=== PATIENT | female | born 1970 | race Caucasian/White ===

== ENCOUNTER 2017-11-01 09:19 | Emergency (ER) | payer MEDICAID ==
[~2017-11-01] VITALS: Ht 152.4 cm; Wt 45.4 kg
[2017-11-01 09:25] VITALS: BP 150/99
[2017-11-01] MEDS ORDERED: DEXAMETHASONE 4 MG TABLET PO ONE (10:30)
[2017-11-01] MEDS ORDERED: DEXAMETHASONE 4 MG TABLET ONE (10:54)
== END 2017-11-01 11:52 | disposition home or self-care (01) ==
LOC: ED 09:57
DX: H66.001 Acute suppurative otitis media without spontaneous rupture of ear drum, right ear (principal)
CPT/HCPCS: 71046; 99284

== ENCOUNTER 2018-04-28 11:45 | Emergency (ER) | payer MEDICAID ==
[~2018-04-28] VITALS: Ht 149.9 cm; Wt 48.7 kg
[2018-04-28 11:51] VITALS: BP 166/84
== END 2018-04-28 12:35 | disposition home or self-care (01) ==
LOC: ED 12:10
DX: S39.012A Strain of muscle, fascia and tendon of lower back, initial encounter (principal); X58.XXXA Exposure to other specified factors, initial encounter; Y93.89 Activity, other specified; Y99.8 Other external cause status; Y92.89 Other specified places as the place of occurrence of the external cause
CPT/HCPCS: 99283

== ENCOUNTER 2019-04-17 18:25 | Inpatient (IN) | payer MEDICAID ==
[~2019-04-17] VITALS: Ht 149.9 cm; Wt 48.3 kg
--- NOTE | 2019-04-17 19:20 | NUR ---
PT BROUGHT BACK TO ROOM 39 FROM THE LOBBY
--- NOTE | 2019-04-17 19:23 | NUR ---
PT WALKING AROUND ROOM ON ARRIVAL. A&OX4, STEADY GAIT.
[2019-04-17 19:45] LABS: MEAN CORPUSCULAR HEMOGLOBIN 29.5 pg (27.0-34.8); MEAN CORPUSCULAR HGB CONC 33.3 g/dL (32.4-35.8); MEAN CORPUSCULAR VOLUME 88.8 fL (80-100); MEAN PLATELET VOLUME 6.9 fL (7.4-10.4); PLATELET COUNT 350 x10^3/uL (130-400); RED BLOOD COUNT 4.59 x10^6/uL (3.82-5.3); RED CELL DISTRIBUTION WIDTH 12.9 % (9.6-15.2)
[2019-04-17 19:59] LABS: ALANINE AMINOTRANSFERASE 19 U/L (12-78); ALBUMIN 3.3 g/dL (3.4-5.0); ANION GAP 7 mmol/L (5-15); CALCIUM 8.8 mg/dL (8.5-10.1); CHLORIDE 101 mmol/L (98-107); CREATININE 0.78 mg/dL (0.55-1.02)
[2019-04-17 20:01] LABS: ALKALINE PHOSPHATASE 91 U/L (45-117); BILIRUBIN,TOTAL 0.3 mg/dL (0.2-1.0); TOTAL PROTEIN 7.6 g/dL (6.4-8.2)
[2019-04-17] MEDS ORDERED: FOSFOMYCIN 3 GM PACKET ONE (20:03)
--- NOTE | 2019-04-17 20:04 | NUR ---
PT TO CT SCAN
[2019-04-17 20:19] LABS: BASOPHILS # (AUTO) 0.01 x10^3/uL (0-0.1); BASOPHILS % (AUTO) 0 % (0-1); EOSINOPHILS # (AUTO) 0.47 x10^3/uL (0-0.4); EOSINOPHILS % (AUTO) 3 % (1-7); LYMPHOCYTES # (AUTO) 1.16 x10^3/uL (1-3.4); LYMPHOCYTES % (AUTO) 7 % (22-44); MD SCAN; MONOCYTES # (AUTO) 0.64 x10^3/uL (0.2-0.8); MONOCYTES % (AUTO) 4 % (2-9); NEUTROPHILS # (AUTO) 14.74 x10^3/uL (1.8-6.8); NEUTROPHILS % (AUTO) 87 % (42-75)
[2019-04-17] MEDS ORDERED: OMNIPAQUE 350 MG/ML, 100ML BOTTLE ONE (20:22)
[2019-04-17] MEDS ORDERED: SODIUM CHLORIDE FLUSH 10ML SYR IVF ONE (21:30)
[2019-04-17] MEDS ORDERED: PHARMACOKINETIC CONSULTATION MC ONE (22:00)
[2019-04-17] MEDS ORDERED: MORPHINE SULFATE 4 MG/ML, 1ML IVPush PRN (22:00)
[2019-04-17] MEDS ORDERED: AMPICILLIN/SULBACTAM 3 GM in SODIUM CHLORIDE 0.9% 100 ML IV ONE (22:00)
[2019-04-17] MEDS ORDERED: SODIUM CHLORIDE 0.9% 1,000ML IVBOLUS ONE (22:00)
[2019-04-17] MEDS ORDERED: VANCOMYCIN PER PHARMACY IV ONE (22:00)
[2019-04-17] MEDS ORDERED: VANCOMYCIN PMX 1GM/200ML 200 ML IV ONE (22:00)
[2019-04-17] MEDS ORDERED: MORPHINE SULFATE 4 MG/ML, 1ML ONE (22:03)
[2019-04-17] MEDS ORDERED: D5%-0.45NACL+KCL 20MEQ 1,000 ML IV SCH (22:19)
[2019-04-17 22:30] VITALS: BP 120/61
[2019-04-17] MEDS ORDERED: VANCOMYCIN PER PHARMACY MC PRN (22:30)
[2019-04-17] MEDS ORDERED: ONDANSETRON 2MG/ML, 2ML IVPush PRN (22:30)
[2019-04-17] MEDS ORDERED: ACETAMINOPHEN 325 MG TABLET PO PRN (22:30)
[2019-04-17] MEDS ORDERED: PHARMACOKINETIC MONITORING MC PRN (23:00)
[2019-04-17] MEDS: morphine SULFATE 10 MG/ML, 1ML IVPush PRN (23:35)
[2019-04-18 01:14] VITALS: BP 102/62
[2019-04-18] MEDS: KETOROLAC 30 MG/1 ML IV PRN ×3 (01:38→16:21)
[2019-04-18] MEDS ORDERED: POTASSIUM CHLORIDE 40 MEQ in SODIUM CHLORIDE 0.9% 500 ML IV ONE (02:30)
[2019-04-18] MEDS: AMPICILLIN/SULBACTAM 3 GM in SODIUM CHLORIDE 0.9% 100 ML IV SCH ×4 (04:17→22:09)
[2019-04-18] MEDS: D5%-LACTATED RINGERS 1,000 ML IV SCH ×2 (04:17→22:09)
[2019-04-18 05:30] LABS: BASOPHILS # (AUTO) 0.01 x10^3/uL (0-0.1); BASOPHILS % (AUTO) 0 % (0-1); EOSINOPHILS # (AUTO) 0.31 x10^3/uL (0-0.4); EOSINOPHILS % (AUTO) 2 % (1-7); LYMPHOCYTES % (AUTO) 6 % (22-44); MD NO; MEAN CORPUSCULAR HEMOGLOBIN 29.6 pg (27.0-34.8); MEAN CORPUSCULAR HGB CONC 33.3 g/dL (32.4-35.8); MEAN CORPUSCULAR VOLUME 88.9 fL (80-100); MEAN PLATELET VOLUME 7.3 fL (7.4-10.4); MONOCYTES # (AUTO) 0.62 x10^3/uL (0.2-0.8); MONOCYTES % (AUTO) 5 % (2-9); NEUTROPHILS # (AUTO) 11.04 x10^3/uL (1.8-6.8); NEUTROPHILS % (AUTO) 86 % (42-75); PLATELET COUNT 286 x10^3/uL (130-400); RED BLOOD COUNT 4.01 x10^6/uL (3.82-5.3); RED CELL DISTRIBUTION WIDTH 13.1 % (9.6-15.2)
[2019-04-18 05:39] LABS: ANION GAP 7 mmol/L (5-15); CALCIUM 7.9 mg/dL (8.5-10.1); CHLORIDE 107 mmol/L (98-107)
[2019-04-18 07:14] VITALS: BP 108/61
[2019-04-18] MEDS: SENNA/DOCUSATE TABLET PO SCH (07:42)
[2019-04-18 11:10] LABS: HCG UR SG > 1.045 (1.003-1.030)
[2019-04-18 11:28] LABS: AMPHETAMINE SCREEN, URINE Negative (Negative); BARBITURATE SCREEN, URINE Negative (Negative); BENZODIAZEPINE SCREEN, URINE Negative (Negative); CANNABINOID SCREEN, URINE Positive (Negative); COCAINE SCREEN, URINE Negative (Negative); METHADONE SCREEN, URINE Negative (Negative); OPIATE SCREEN, URINE Positive (Negative)
[2019-04-18] MEDS: VANCOMYCIN PMX 1GM/200ML 200 ML IV SCH (11:30)
[2019-04-18] MEDS ORDERED: FENTANYL PF 250 MCG/5ML ONE (12:37)
[2019-04-18] MEDS ORDERED: MIDAZOLAM 1 MG/ML, 2ML ONE (12:37)
[2019-04-18] MEDS ORDERED: LIDOCAINE 1%-EPI 1:100K, 20ML ONE (12:39)
[2019-04-18] MEDS ORDERED: LIDOCAINE-MPF 2% ,5ML ONE (12:40)
[2019-04-18] MEDS ORDERED: PROPOFOL 10 MG/ML, 20ML ONE (12:40)
[2019-04-18] MEDS ORDERED: SUCCINYLCHOLINE 20 MG/ML, 10ML ONE (12:40)
[2019-04-18] MEDS ORDERED: PHENYLEPHRINE 10 MG/ML ONE (13:17)
[2019-04-18] MEDS ORDERED: PROMETHAZINE 25 MG/ML, 1ML IV PRN (14:00)
[2019-04-18] MEDS ORDERED: HYDROmorphone 2 MG/ML, 1ML IVPush PRN (14:00)
[2019-04-18] MEDS ORDERED: FENTANYL PF 100 MCG/2ML IV PRN (14:00)
[2019-04-18] MEDS ORDERED: OXYcodone 5 MG/5 ML ORAL.SOL UDC PO PRN (14:00)
[2019-04-18] MEDS ORDERED: ACETAMINOPHEN 325 MG TABLET PO PRN (14:00)
[2019-04-18] MEDS ORDERED: HALOPERIDOL 5 MG/ML IV PRN (14:00)
[2019-04-18] MEDS ORDERED: MEPERIDINE/PF 25MG/0.5ML IVPush PRN (14:00)
[2019-04-18 14:55] VITALS: BP 108/72
[2019-04-18 18:55] VITALS: BP 91/60
[2019-04-19] MEDS: VANCOMYCIN PMX 1GM/200ML 200 ML IV SCH ×2 (00:02→12:52)
[2019-04-19] MEDS: KETOROLAC 30 MG/1 ML IV PRN ×4 (00:02→21:26)
[2019-04-19 00:14] VITALS: BP 113/70
[2019-04-19 03:28] VITALS: BP 104/67
[2019-04-19] MEDS: AMPICILLIN/SULBACTAM 3 GM in SODIUM CHLORIDE 0.9% 100 ML IV SCH ×2 (04:16→10:18)
[2019-04-19 05:27] LABS: BASOPHILS # (AUTO) 0.02 x10^3/uL (0-0.1); BASOPHILS % (AUTO) 0 % (0-1); EOSINOPHILS # (AUTO) 0.23 x10^3/uL (0-0.4); EOSINOPHILS % (AUTO) 3 % (1-7); LYMPHOCYTES # (AUTO) 0.96 x10^3/uL (1-3.4); LYMPHOCYTES % (AUTO) 12 % (22-44); MD NO; MEAN CORPUSCULAR HGB CONC 33.8 g/dL (32.4-35.8); MEAN CORPUSCULAR VOLUME 88.8 fL (80-100); MEAN PLATELET VOLUME 7.4 fL (7.4-10.4); MONOCYTES # (AUTO) 0.67 x10^3/uL (0.2-0.8); MONOCYTES % (AUTO) 9 % (2-9); NEUTROPHILS # (AUTO) 5.81 x10^3/uL (1.8-6.8); NEUTROPHILS % (AUTO) 76 % (42-75); PLATELET COUNT 277 x10^3/uL (130-400); RED BLOOD COUNT 3.63 x10^6/uL (3.82-5.3); RED CELL DISTRIBUTION WIDTH 12.5 % (9.6-15.2)
[2019-04-19 05:33] LABS: ALBUMIN 2.2 g/dL (3.4-5.0); ANION GAP 5 mmol/L (5-15); CALCIUM 7.6 mg/dL (8.5-10.1); CHLORIDE 108 mmol/L (98-107)
[2019-04-19 05:37] LABS: CREATININE 0.47 mg/dL (0.55-1.02)
[2019-04-19 05:38] LABS: ALANINE AMINOTRANSFERASE 13 U/L (12-78); ALKALINE PHOSPHATASE 76 U/L (45-117); BILIRUBIN,TOTAL 0.3 mg/dL (0.2-1.0); TOTAL PROTEIN 5.4 g/dL (6.4-8.2)
[2019-04-19 07:27] VITALS: BP 107/69
[2019-04-19] MEDS: SENNA/DOCUSATE TABLET PO SCH (08:53)
[2019-04-19] MEDS: HEPARIN 5,000 UNITS/ML, 1ML SQ SCH ×2 (08:53→16:30)
[2019-04-19] MEDS: D5%-LACTATED RINGERS 1,000 ML IV SCH (12:52)
[2019-04-19 13:23] VITALS: BP 121/70
[2019-04-19 21:00] VITALS: BP 125/76
[2019-04-19] MEDS: morphine SULFATE 10 MG/ML, 1ML IVPush PRN (23:34)
[2019-04-20 00:54] VITALS: BP 133/92
[2019-04-20] MEDS: HEPARIN 5,000 UNITS/ML, 1ML SQ SCH ×2 (00:58→07:44)
[2019-04-20] MEDS: VANCOMYCIN PMX 1GM/200ML 200 ML IV SCH ×2 (00:58→13:02)
[2019-04-20] MEDS: D5%-LACTATED RINGERS 1,000 ML IV SCH (03:02)
[2019-04-20 05:13] LABS: BASOPHILS # (AUTO) 0.03 x10^3/uL (0-0.1); BASOPHILS % (AUTO) 1 % (0-1); EOSINOPHILS # (AUTO) 0.36 x10^3/uL (0-0.4); EOSINOPHILS % (AUTO) 8 % (1-7); LYMPHOCYTES # (AUTO) 1.86 x10^3/uL (1-3.4); LYMPHOCYTES % (AUTO) 39 % (22-44); MD SCAN; MEAN CORPUSCULAR HEMOGLOBIN 28.7 pg (27.0-34.8); MEAN CORPUSCULAR HGB CONC 32.4 g/dL (32.4-35.8); MEAN CORPUSCULAR VOLUME 88.7 fL (80-100); MEAN PLATELET VOLUME 7.1 fL (7.4-10.4); MONOCYTES # (AUTO) 0.49 x10^3/uL (0.2-0.8); MONOCYTES % (AUTO) 10 % (2-9); NEUTROPHILS % (AUTO) 42 % (42-75); PLATELET COUNT 341 x10^3/uL (130-400); RED BLOOD COUNT 3.92 x10^6/uL (3.82-5.3); RED CELL DISTRIBUTION WIDTH 12.7 % (9.6-15.2)
[2019-04-20] MEDS: KETOROLAC 30 MG/1 ML IV PRN ×3 (07:03→19:40)
[2019-04-20] MEDS: SENNA/DOCUSATE TABLET PO SCH (07:45)
[2019-04-20 08:35] VITALS: BP 133/80
[2019-04-20 14:00] VITALS: BP 133/86
[2019-04-20] MEDS: ENOXAPARIN 40 MG/0.4 ML SQ SCH (17:22)
[2019-04-20 19:45] VITALS: BP 125/73
[2019-04-21 01:36] VITALS: BP 113/76
[2019-04-21] MEDS: KETOROLAC 30 MG/1 ML IV PRN ×3 (01:39→17:07)
[2019-04-21] MEDS: VANCOMYCIN PMX 1GM/200ML 200 ML IV SCH (01:39)
[2019-04-21] MEDS ORDERED: DIPHENHYDRAMINE 25 MG CAPSULE ONE (01:53)
[2019-04-21] MEDS ORDERED: FLUO20CA19 PO (01:57)
[2019-04-21] MEDS ORDERED: DIPHENHYDRAMINE 25 MG CAPSULE PO ONE (02:00)
[2019-04-21 05:21] LABS: BASOPHILS # (AUTO) 0.04 x10^3/uL (0-0.1); BASOPHILS % (AUTO) 1 % (0-1); EOSINOPHILS # (AUTO) 0.44 x10^3/uL (0-0.4); EOSINOPHILS % (AUTO) 9 % (1-7); LYMPHOCYTES # (AUTO) 1.67 x10^3/uL (1-3.4); LYMPHOCYTES % (AUTO) 35 % (22-44); MD NO; MEAN CORPUSCULAR HEMOGLOBIN 29.4 pg (27.0-34.8); MEAN CORPUSCULAR HGB CONC 33.3 g/dL (32.4-35.8); MEAN CORPUSCULAR VOLUME 88.2 fL (80-100); MEAN PLATELET VOLUME 7.2 fL (7.4-10.4); MONOCYTES # (AUTO) 0.51 x10^3/uL (0.2-0.8); MONOCYTES % (AUTO) 11 % (2-9); NEUTROPHILS # (AUTO) 2.06 x10^3/uL (1.8-6.8); NEUTROPHILS % (AUTO) 44 % (42-75); PLATELET COUNT 445 x10^3/uL (130-400); RED BLOOD COUNT 3.99 x10^6/uL (3.82-5.3); RED CELL DISTRIBUTION WIDTH 12.3 % (9.6-15.2)
[2019-04-21 08:15] VITALS: BP 120/67
[2019-04-21] MEDS: AMPICILLIN/SULBACTAM 1,500 MG in SODIUM CHLORIDE 0.9% 50 ML IV SCH ×3 (08:50→20:50)
[2019-04-21] MEDS: SENNA/DOCUSATE TABLET PO SCH (08:50)
[2019-04-21] MEDS: FLUOXETINE HCL 20 MG CAPSULE PO SCH (10:06)
[2019-04-21 13:54] VITALS: BP 122/86
[2019-04-21] MEDS: ENOXAPARIN 40 MG/0.4 ML SQ SCH (17:07)
[2019-04-21 19:11] VITALS: BP 142/84
[2019-04-22] MEDS: KETOROLAC 30 MG/1 ML IV PRN (00:24)
[2019-04-22 01:23] VITALS: BP 125/75
[2019-04-22] MEDS: AMPICILLIN/SULBACTAM 1,500 MG in SODIUM CHLORIDE 0.9% 50 ML IV SCH (02:39)
[2019-04-22] MEDS ORDERED: TEMAZEPAM 15 MG CAPSULE ONE (02:46)
[2019-04-22] MEDS ORDERED: TEMAZEPAM 15 MG CAPSULE PO ONE (03:00)
[2019-04-22 05:21] LABS: BASOPHILS # (AUTO) 0.04 x10^3/uL (0-0.1); BASOPHILS % (AUTO) 1 % (0-1); EOSINOPHILS # (AUTO) 0.59 x10^3/uL (0-0.4); EOSINOPHILS % (AUTO) 9 % (1-7); LYMPHOCYTES # (AUTO) 2.19 x10^3/uL (1-3.4); LYMPHOCYTES % (AUTO) 34 % (22-44); MD NO; MEAN CORPUSCULAR HGB CONC 33.1 g/dL (32.4-35.8); MEAN CORPUSCULAR VOLUME 87.6 fL (80-100); MONOCYTES # (AUTO) 0.72 x10^3/uL (0.2-0.8); MONOCYTES % (AUTO) 11 % (2-9); NEUTROPHILS # (AUTO) 2.93 x10^3/uL (1.8-6.8); NEUTROPHILS % (AUTO) 45 % (42-75); PLATELET COUNT 481 x10^3/uL (130-400); RED BLOOD COUNT 4.35 x10^6/uL (3.82-5.3); RED CELL DISTRIBUTION WIDTH 12.6 % (9.6-15.2)
[2019-04-22 06:30] VITALS: BP 127/76
[2019-04-22] MEDS ORDERED: IBUPROFEN 200 MG TABLET PO PRN (08:00)
[2019-04-22] MEDS ORDERED: OMEPRAZOLE 20 MG CAPSULE.DR PO SCH (08:00)
[2019-04-22] MEDS: FLUOXETINE HCL 20 MG CAPSULE PO SCH (08:39)
[2019-04-22] MEDS: SENNA/DOCUSATE TABLET PO SCH (08:39)
[2019-04-22] MEDS ORDERED: AMOXICILLIN/CLAV 875-125MG TABLET PO SCH (09:00)
[2019-04-22] MEDS ORDERED: OMEP-110 PO (10:00)
[2019-04-22] MEDS ORDERED: ACET325T26 PO (10:00)
[2019-04-22] MEDS ORDERED: AMOX1TAB12 PO (10:00)
[2019-04-22] MEDS ORDERED: IBUP-1902 PO (10:00)
== END 2019-04-22 12:05 | disposition home or self-care (01) | DRG 854 ==
LOC: ED 20:54 → EDIP 21:45 → 4NOR 22:37 → DCLOUNGE 04-22 11:57
PROVIDERS: ADMIT Family Medicine; ATTEND Family Medicine
PROC: 0K9200Z Drainage of Right Neck Muscle with Drainage Device, Open Approach (ICD-10-PCS; principal; 2019-04-18 13:00)
DX: A41.9 Sepsis, unspecified organism (principal); E44.1 Mild protein-calorie malnutrition; L03.221 Cellulitis of neck; L02.11 Cutaneous abscess of neck; E86.0 Dehydration; B95.0 Streptococcus, group A, as the cause of diseases classified elsewhere; E87.6 Hypokalemia; F12.90 Cannabis use, unspecified, uncomplicated; L04.0 Acute lymphadenitis of face, head and neck; Z68.21 Body mass index [BMI] 21.0-21.9, adult
CPT/HCPCS: 36415; 84145; 99285; J3490; J7121; 70491; 80048; 80053; 80202; 80307; 81025; 83605; 84703; 85025; 87040; 87070; 87075; 87147; 87181; 87205; 96365; G0378; J0295; J1644; J1650; J1885; J2250; J2704; J3010; J3370; J3480; Q9967; J0330; J2270; J2370; J7030; J7040; Q0163

== ENCOUNTER 2019-08-31 14:31 | Emergency (ER) | payer MEDICAID, OTHER ==
[~2019-08-31] VITALS: Ht 149.9 cm; Wt 48.7 kg
[~2019-08-31 14:31] MED LIST: ACET325T26 PO; AMOX1TAB12 PO; FLUO20CA19 PO; IBUP-1902 PO; OMEP-110 PO
--- NOTE | 2019-08-31 14:47 | NUR ---
EKG COMPLETED IN TRIAGE.
--- NOTE | 2019-08-31 15:00 | NUR ---
THIS IS A 49 YO FEMALE WHO PRESENTS TO THE ER C/O "MIGRAINE" SINCE 1300 YESTERDAY. PT REPORTS SLIGHT LIGHTHEADEDNESS AND SENSITIVITY TO LIGHT WHICH IS "NORMAL" WITH HER MIGRAINES PER PT. PT HAD NO RELIEF WITH HOME MEDICATIONS. PT DENIES N/V. PT AO X 4. NO VISION CHANGES. CALL LIGHT WITHIN REACH. WILL CONT TO MONITOR PT.
[2019-08-31] MEDS ORDERED: METOCLOPRAMIDE 5 MG/ML, 2ML ONE (15:39)
[2019-08-31] MEDS ORDERED: DIPHENHYDRAMINE 50 MG/ML, 1ML ONE (15:39)
[2019-08-31] MEDS ORDERED: KETOROLAC 30 MG/1 ML ONE (15:40)
[2019-08-31] MEDS ORDERED: KETOROLAC 30 MG/1 ML IVPush ONE (16:00)
[2019-08-31] MEDS ORDERED: SODIUM CHLORIDE FLUSH 10ML SYR IVF ONE (16:00)
[2019-08-31] MEDS ORDERED: METOCLOPRAMIDE 5 MG/ML, 2ML IVPush ONE (16:00)
[2019-08-31] MEDS ORDERED: DIPHENHYDRAMINE 50 MG/ML, 1ML IVPush ONE (16:00)
[2019-08-31] MEDS ORDERED: SODIUM CHLORIDE 0.9% 1,000ML IVBOLUS ONE (16:00)
--- NOTE | 2019-08-31 16:37 | NUR ---
PT CURRENTLY DOZING ON LOIDA. AWAKENS EASILY TO NAME BEING CALLED. NAD NOTED. SKIN PWD. RESP EVEN AND UNLABORED. PT REPORTS RELIEF OF MIGRAINE AFTER MEDICATIONS. CALL LIGHT WITHIN REACH. WILL CONT TO MONITOR PT.
[2019-08-31 17:14] VITALS: BP 129/79
== END 2019-08-31 17:16 | disposition home or self-care (01) ==
LOC: ED 15:35
DX: G43.909 Migraine, unspecified, not intractable, without status migrainosus (principal); H53.2 Diplopia; R42 Dizziness and giddiness
CPT/HCPCS: 93005; 96361; 96374; 96375; 99283; J1200; J1885; J2765; J7030

== ENCOUNTER 2019-12-09 16:31 | Emergency (ER) | payer SELFPAY ==
[~2019-12-09] VITALS: Ht 149.9 cm; Wt 48.0 kg
[2019-12-09 16:38] VITALS: BP 122/84
--- NOTE | 2019-12-09 16:47 | NUR ---
PT DENIES SI/HI TO THIS RN, PT GOT ANGRY SHE DID NOT HAVE A ROOM SO PT LWBS.
== END 2019-12-09 16:49 | disposition left against medical advice (07) ==
LOC: ED 16:43
DX: R45.851 Suicidal ideations (principal); Z53.21 Procedure and treatment not carried out due to patient leaving prior to being seen by health care provider

== ENCOUNTER 2020-01-05 16:43 | Emergency (ER) | payer OTHER ==
[~2020-01-05] VITALS: Ht 180.3 cm; Wt 46.0 kg
[2020-01-05 16:49] VITALS: BP 151/92
--- NOTE | 2020-01-05 16:56 | NUR ---
BUILDINGS AND GROUNDS DIRECTOR: SCOTT WAS BEEN HERE TO TALK TO PATIENT.
--- NOTE | 2020-01-05 17:49 | NUR ---
DELIVERY ROUTE DRIVER: PT REFUSED TO BEEN SEEN, LEFT AMA
== END 2020-01-05 17:51 | disposition left against medical advice (07) ==
LOC: ED 17:45
DX: R55 Syncope and collapse (principal); H57.89 Other specified disorders of eye and adnexa; R51 Headache; Y08.89XA Assault by other specified means, initial encounter; Y93.89 Activity, other specified; Y92.89 Other specified places as the place of occurrence of the external cause; Y99.8 Other external cause status
CPT/HCPCS: 93005; 99283

== ENCOUNTER 2020-03-17 07:16 | Emergency (ER) | payer OTHER ==
[~2020-03-17] VITALS: Ht 149.9 cm; Wt 47.9 kg
--- NOTE | 2020-03-17 07:39 | NUR ---
Pt resting on gurney with family at bedside. EDELMIRAN. Pt reports N/V and RUQ pain starting last night and "unable to keep liquids down". PA at bedside. Call light within reach. No other needs expressed at this time. No vomitting observed at this time.
[2020-03-17] MEDS ORDERED: MAALOX/HYOSCYAMINE/LIDOCAINE 45 ML BTL ONE (07:43)
[2020-03-17] MEDS ORDERED: MORPHINE SULFATE 4 MG/ML, 1ML ONE ×2 (07:43→08:55)
[2020-03-17] MEDS ORDERED: ONDANSETRON 2MG/ML, 2ML ONE (07:43)
[2020-03-17] MEDS ORDERED: FAMOTIDINE 20 MG/2 ML ONE (07:44)
[2020-03-17 07:52] LABS: BASOPHILS # (AUTO) 0.02 x10^3/uL (0-0.1); BASOPHILS % (AUTO) 0 % (0-1); EOSINOPHILS # (AUTO) 0.73 x10^3/uL (0-0.4); EOSINOPHILS % (AUTO) 11 % (1-7); LYMPHOCYTES # (AUTO) 1.34 x10^3/uL (1-3.4); LYMPHOCYTES % (AUTO) 19 % (22-44); MD NO; MEAN CORPUSCULAR HEMOGLOBIN 30.4 pg (27.0-34.8); MEAN CORPUSCULAR HGB CONC 33.1 g/dL (32.4-35.8); MEAN PLATELET VOLUME 6.9 fL (7.4-10.4); MONOCYTES # (AUTO) 0.63 x10^3/uL (0.2-0.8); MONOCYTES % (AUTO) 9 % (2-9); NEUTROPHILS # (AUTO) 4.21 x10^3/uL (1.8-6.8); NEUTROPHILS % (AUTO) 61 % (42-75); PLATELET COUNT 319 x10^3/uL (130-400); RED BLOOD COUNT 4.75 x10^6/uL (3.82-5.3)
[2020-03-17] MEDS ORDERED: MAALOX/HYOSCYAMINE/LIDOCAINE 45 ML BTL PO ONE (08:00)
[2020-03-17] MEDS ORDERED: SODIUM CHLORIDE 0.9% 1,000ML IVBOLUS ONE (08:00)
[2020-03-17] MEDS ORDERED: ONDANSETRON 2MG/ML, 2ML IVPush ONE (08:00)
[2020-03-17] MEDS ORDERED: FAMOTIDINE 20 MG/2 ML IV ONE (08:00)
[2020-03-17] MEDS: MORPHINE SULFATE 4 MG/ML, 1ML IVPush PRN ×2 (08:01→08:57)
--- NOTE | 2020-03-17 08:09 | NUR ---
Pt connected to NIBP and pulse ox monitor, call light within reach. PIV established and medications provided per EMAR. Pt repots pain of 7/10 in RUQ prior to medicaiton admin. Pt reports 3/10 in RUQ post medical collections specialist. NADN. No other needs expressed.
[2020-03-17 08:16] LABS: ALANINE AMINOTRANSFERASE 25 U/L (12-78); ALBUMIN 3.6 g/dL (3.4-5.0); ANION GAP 8 mmol/L (5-15); CALCIUM 8.5 mg/dL (8.5-10.1); CHLORIDE 110 mmol/L (98-107); CREATININE 0.74 mg/dL (0.55-1.02)
[2020-03-17 08:20] LABS: ALKALINE PHOSPHATASE 95 U/L (45-117); BILIRUBIN,TOTAL 0.4 mg/dL (0.2-1.0); TOTAL PROTEIN 7.1 g/dL (6.4-8.2)
--- NOTE | 2020-03-17 09:38 | NUR ---
TASK RN: PT RESTING ON LOIDA. NADN. POOLE. PT CHART REVIEWED AND PLACED FOR RECHECK.
--- NOTE | 2020-03-17 10:27 | NUR ---
Patientgiven discharge instructions and they have confirmed that they understand the instructions. Patient ambulatory with steady gait. Pt left with taxi voucher, d/c paperwork, Rx, and all personal belongings. NADN. No needs expressed.
[2020-03-17 10:28] VITALS: BP 134/61
== END 2020-03-17 10:30 | disposition home or self-care (01) ==
LOC: ED 08:27
DX: K29.70 Gastritis, unspecified, without bleeding (principal); R10.13 Epigastric pain; R11.2 Nausea with vomiting, unspecified; R10.9 Unspecified abdominal pain; Z90.49 Acquired absence of other specified parts of digestive tract
CPT/HCPCS: 36415; 76700; 80053; 83690; 84702; 85025; 86901; 96361; 96374; 96375; 96376; 99284; J2270; J2405; J3490; J7030; 84703

== ENCOUNTER 2020-03-20 09:27 | Emergency (ER) | payer OTHER ==
[~2020-03-20] VITALS: Ht 149.9 cm; Wt 48.4 kg
--- NOTE | 2020-03-20 09:30 | NUR ---
NAX1
[2020-03-20 09:42] VITALS: BP 133/90
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
[2020-03-20] MEDS ORDERED: ONDANSETRON ODT 4 MG ONE (10:13)
[2020-03-20] MEDS ORDERED: MAALOX/HYOSCYAMINE/LIDOCAINE 45 ML BTL ONE (10:13)
[2020-03-20] MEDS ORDERED: ONDANSETRON ODT 4 MG PO ONE (10:30)
[2020-03-20] MEDS ORDERED: MAALOX/HYOSCYAMINE/LIDOCAINE 45 ML BTL PO ONE (10:30)
[2020-03-20] MEDS ORDERED: ONDANSETRON 0.8 MG/ML ORAL SOL PO ONE (10:30)
--- NOTE | 2020-03-20 10:45 | NUR ---
PT REQUESTING PAIN MEDS AND FEMALE RNLuis DE SANTIAGO MADE AWARE. PT JUST WALKED OUT OF ROOM STATING "I'M GOING TO [place]."
[2020-03-20] MEDS ORDERED: KETOROLAC 30 MG/1 ML IM ONE (11:00)
== END 2020-03-20 11:08 | disposition left against medical advice (07) ==
LOC: ED 11:00
DX: K29.20 Alcoholic gastritis without bleeding (principal); F10.220 Alcohol dependence with intoxication, uncomplicated; F17.210 Nicotine dependence, cigarettes, uncomplicated; R10.2 Pelvic and perineal pain; Y90.0 Blood alcohol level of less than 20 mg/100 ml; Z32.01 Encounter for pregnancy test, result positive
CPT/HCPCS: 36415; 84702; 99283; Q0162

== ENCOUNTER 2020-05-31 17:21 | Emergency (ER) | payer MEDICAID ==
[~2020-05-31] VITALS: Ht 149.9 cm; Wt 47.7 kg
[2020-05-31 17:30] VITALS: BP 165/105
[2020-05-31] MEDS ORDERED: ACETAMINOPHEN 325 MG TABLET PO ONE (18:00)
[2020-05-31] MEDS ORDERED: LORazepam 1MG TABLET PO ONE (18:00)
[2020-05-31] MEDS ORDERED: LORazepam 1MG TABLET ONE (18:17)
[2020-05-31] MEDS ORDERED: ACETAMINOPHEN 325 MG TABLET ONE ×2 (18:17→18:30)
--- NOTE | 2020-05-31 18:25 | NUR ---
WRAPPER STEMMER HAND: PER PRIMARY RN, PT REFUSING HIS CARE D/T HE IS A MALE NURSE. REASSIGNING PT TO A FEMALE NURSE.
--- NOTE | 2020-05-31 18:26 | NUR ---
PT STATING SHE DOESN'T TRUST THIS RN AFTER ATTEMPTING TO MEDICATE HER PER MAR. PT IS TEARFUL AND DOESN'T TRUST MEN. CHARGE JANICE NOTIFIED. RPT TO GATO FELIZ TO ASSUME CARE.
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
== END 2020-05-31 19:26 ==
LOC: ED 19:06
DX: S09.90XA Unspecified injury of head, initial encounter (principal); R11.2 Nausea with vomiting, unspecified; F10.129 Alcohol abuse with intoxication, unspecified; Y90.9 Presence of alcohol in blood, level not specified; R00.0 Tachycardia, unspecified; G43.909 Migraine, unspecified, not intractable, without status migrainosus; W22.8XXA Striking against or struck by other objects, initial encounter; Y93.89 Activity, other specified; Y92.89 Other specified places as the place of occurrence of the external cause; Y99.8 Other external cause status
CPT/HCPCS: 70450; 99284

== ENCOUNTER 2020-06-02 13:20 | Emergency (ER) | payer MEDICAID ==
[~2020-06-02] VITALS: Ht 149.9 cm; Wt 46.7 kg
[2020-06-02] MEDS ORDERED: ONDANSETRON ODT 4 MG PO ONE (14:00)
[2020-06-02] MEDS ORDERED: ACETAMINOPHEN 500 MG TABLET PO ONE (14:00)
[2020-06-02] MEDS ORDERED: MECLIZINE CHEWABLE 25 MG TAB PO ONE (14:00)
--- NOTE | 2020-06-02 14:01 | NUR ---
PT TO CT VIA [facility].
[2020-06-02] MEDS ORDERED: ONDANSETRON ODT 4 MG ONE (14:21)
[2020-06-02] MEDS ORDERED: ACETAMINOPHEN 500 MG TABLET ONE (14:21)
[2020-06-02] MEDS ORDERED: MECLIZINE CHEWABLE 25 MG TAB ONE (14:23)
[2020-06-02 15:34] VITALS: BP 144/78
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
== END 2020-06-02 15:43 | disposition home or self-care (01) ==
LOC: ED 13:51
DX: S06.0X1A Concussion with loss of consciousness of 30 minutes or less, initial encounter (principal); S20.211A Contusion of right front wall of thorax, initial encounter; R06.02 Shortness of breath; R42 Dizziness and giddiness; R11.10 Vomiting, unspecified; G43.909 Migraine, unspecified, not intractable, without status migrainosus; Y04.8XXA Assault by other bodily force, initial encounter; Y93.89 Activity, other specified; Y92.89 Other specified places as the place of occurrence of the external cause; Y99.8 Other external cause status
CPT/HCPCS: 70450; 71101; 99284; Q0162

== ENCOUNTER 2020-12-13 18:24 | Emergency (ER) | payer MEDICAID ==
[~2020-12-13] VITALS: Ht 149.9 cm; Wt 45.5 kg
[2020-12-13 18:27] VITALS: BP 144/79
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
--- NOTE | 2020-12-13 19:10 | NUR ---
PT WAS GONE FROM ROOM WHEN VALET ATTENDANT WENT IN TO SPEAK WITH HER.
== END 2020-12-13 19:27 | disposition left against medical advice (07) ==
LOC: ED 19:00
DX: Z53.21 Procedure and treatment not carried out due to patient leaving prior to being seen by health care provider (principal)

== ENCOUNTER 2021-03-12 12:08 | Emergency (ER) | payer MEDICAID, OTHER ==
[~2021-03-12] VITALS: Ht 149.9 cm; Wt 48.7 kg
[2021-03-12 12:10] VITALS: BP 156/68
--- NOTE | 2021-03-12 12:13 | NUR ---
LYDIA RN: C-COLLAR PLACED
--- NOTE | 2021-03-12 12:19 | NUR ---
PT AMBULATES FROM TRIAGE TO ROOM WITH STEADY GAIT.
--- NOTE | 2021-03-12 13:11 | NUR ---
PT TO IMAGING AT THIS TIME.
== END 2021-03-12 14:07 | disposition home or self-care (01) ==
LOC: ED 13:00
DX: S16.1XXA Strain of muscle, fascia and tendon at neck level, initial encounter (principal); S40.011A Contusion of right shoulder, initial encounter; G43.909 Migraine, unspecified, not intractable, without status migrainosus; X58.XXXA Exposure to other specified factors, initial encounter; Y93.89 Activity, other specified; Y92.89 Other specified places as the place of occurrence of the external cause; Y99.8 Other external cause status
CPT/HCPCS: 72020; 72050; 99284